=== PATIENT | male | born 1980 | race Caucasian/White ===

== ENCOUNTER → 2019-01-04 | Outpatient (CLI) | payer OTHER ==
[~2019-01-04] VITALS: Ht 172.7 cm; Wt 83.9 kg
[~2019-01-04] MED LIST: GADOBUTROL 7.5 MMOL/7.5 ML (GADAVIST) VIAL IV ONE; IOHEXOL 240 MGI/ML 20 ML (OMNIPAQUE) VIAL IV ONE; LIDOCAINE 1% INJ 20 ML 20 ML VIAL INJ ONE
--- NOTE | 2019-01-04 10:41 | Diagnostic Imaging Report ---
Right shoulder injection for MRI. Indication: Shoulder pain Following aseptic preparation of the skin and administration of local anesthesia, a 21-gauge was advanced into the glenohumeral joint using fluoroscopic guidance. 36 seconds of fluoroscopy time were visualized. Subsequently 12 cc mixture of Omnipaque 240 saline and Gadavist was infused. The patient tolerated the procedure well and was sent to the MR suite in good condition. Impression: There has been a successful injection of the right glenohumeral joint. Dictated by: Dictated on workstation # [id number]
--- NOTE | 2019-01-04 11:50 | Diagnostic Imaging Report ---
EXAMINATION: Magnetic resonance imaging of the right shoulder with intra-articular contrast. DATE: January 04, 2019. COMPARISON: Right shoulder arthrogram January 04, 2019. HISTORY: 38-year-old male, right shoulder pain since June 2018. No known recent injury. TECHNIQUE: Magnetic Resonance Imaging sequences were performed of the shoulder following the intra-articular administration of contrast. FINDINGS: ROTATOR CUFF, LIGAMENTS, TENDONS, AND MUSCLES: The supraspinatus, infraspinatus, teres minor, and subscapularis tendons and muscles are intact. There is normal rotator cuff muscle bulk and signal. LONG HEAD OF BICEPS: The biceps labral attachment and long head of the biceps tendon is intact. The long head of the biceps tendon is normally positioned within the bicipital groove. GLENOHUMERAL JOINT: The humeral head is well positioned relative to the glenoid. The labrum is intact. There is no identified paralabral cyst. The articular cartilage is grossly intact. There is no identified intra-articular body or prominent synovitis. ACROMIOCLAVICULAR JOINT: The acromioclavicular joint is normally aligned. The coracoclavicular and coracoacromial ligaments are intact. There are mild acromioclavicular degenerative changes without large undersurface osteophyte. BONE: There is a benign contour deformity of the superior aspect of the distal clavicle. There is no os acromiale. There is no acute fracture, bone contusion, or evidence of osteonecrosis. BURSAE AND SOFT TISSUES: The bursae and soft tissue surrounding the shoulder are unremarkable. IMPRESSION: 1. Intact labrum. Additional glenohumeral joint assessment is unremarkable. 2. Intact rotator cuff. 3. Mild acromioclavicular degenerative changes without large undersurface osteophyte. No os acromiale. 4. Benign contour abnormality of the superior aspect of the distal clavicle. No acute fracture, bone contusion, or evidence of osteonecrosis. Dictated by: Dictated on workstation # [id number]
== END ==
LOC: RAD 08:30
PROVIDERS: ATTEND Orthopaedic Surgery
DX: M19.011 Primary osteoarthritis, right shoulder (principal)
CPT/HCPCS: 23350; 73040; 73219

== ENCOUNTER → 2021-07-06 | Outpatient (CLI) | payer OTHER | LOC: LABNPT 06:45 | PROVIDERS: ATTEND Family Medicine | DX: U07.1 COVID-19 (principal) | CPT/HCPCS: 87635 ==